=== PATIENT | female | born 1975 | race Caucasian/White ===

== ENCOUNTER 2017-05-11 10:43 | Emergency (ER) | payer SELFPAY ==
[~2017-05-11 10:43] MED LIST: AMITRIPTYLINE H50 MG PO; AMOXICILLIN PO; BACTRIM DS TABL1 TA1 PO; CELEXA PO; CHANTIX PO; CIPRO PO; DICYCLOMINE HCL20 MG PO; DOXYCYCLINE HY100 M1 PO; FAMOTIDINE PO; FLEXERIL PO; FLEXERIL10 MG PO; HCTZ PO; HYDROCHLOROTHIA25 MG PO; IBUPROFEN PO; LORATADINE PO; LORTAB 5/500 TA1 TA1 PO; MOBIC PO; NEURONTIN PO; NO MEDICATIONS; OMEPRAZOLE40 MG PO; PHENERGAN DM1 ML PO; PHENERGAN25 MG PO; PREDNISONE PO; VENTOLIN5 MG/ML IH; VICODIN 5/500 T1 TAB PO; ZOLOFT PO
[2017-05-11] MEDS ORDERED: ZYRTEC (10:48)
== END 2017-05-11 11:09 | disposition home or self-care (01) ==
LOC: SED 10:43
DX: T24.101A Burn of first degree of unspecified site of right lower limb, except ankle and foot, initial encounter (principal); T79.9XXA Unspecified early complication of trauma, initial encounter; Z23 Encounter for immunization; I10 Essential (primary) hypertension; F17.210 Nicotine dependence, cigarettes, uncomplicated; Z90.710 Acquired absence of both cervix and uterus; Z98.51 Tubal ligation status; X16.XXXA Contact with hot heating appliances, radiators and pipes, initial encounter; Y92.9 Unspecified place or not applicable
CPT/HCPCS: 16020; 90471; 90715; 99283

== ENCOUNTER 2017-07-02 11:37 | Emergency (ER) | payer OTHER ==
[~2017-07-02] VITALS: Ht 162.6 cm; Wt 74.8 kg
[~2017-07-02 11:37] MED LIST changes: +ZYRTEC
[2017-07-07 01:10] LABS: HEP C AB (HEPPAN) Nonreactive (Nonreactive); HEP C AB SIGNAL TO CUTOFF 0.02 ratio (<1.00); HEPATITIS B SURFACE ANTIBODY <5 mIU/mL (>=10)
== END 2017-07-02 13:00 | disposition home or self-care (01) ==
LOC: SED 11:37
PROVIDERS: Physician Assistant
DX: S69.92XA Unspecified injury of left wrist, hand and finger(s), initial encounter (principal); F17.210 Nicotine dependence, cigarettes, uncomplicated; W27.3XXA Contact with needle (sewing), initial encounter; Y92.007 Garden or yard of unspecified non-institutional (private) residence as the place of occurrence of the external cause
CPT/HCPCS: 36415; 86706; 86803; 87806; 99283